=== PATIENT | female | born 1990 | race American Indian/Alaskan Native ===

== ENCOUNTER 2016-10-20 08:00 | Day surgery (SDC) | payer MEDICAID ==
[~2016-10-20 08:00] MED LIST: NACL 0.9% IR ONE
[2016-10-20] MEDS ORDERED: SUBLIMAZE IV PRN (10:30)
--- NOTE | 2016-10-20 10:32 | Anesthesia Day of Surgery ---
Anesthesia Day of Surgery - Day of Surgery Patient Examined: Yes Patient H&P Reviewed: Yes Patient is NPO: Yes Beta Blockers: No Cardiac Clearance: No Pulmonary Clearance: No
--- NOTE | 2016-10-20 10:33 | Anesthesia Consultation ---
Anesthesia Consult and Med Hx Date of service: 10/20/16 - Airway Anesthetic Teeth Evaluation: Good ROM Head & Neck: Adequate Mental/Hyoid Distance: Adequate Mallampati Class: Class II Intubation Access Assessment: Good - Pulmonary Exam CTA: Yes - Cardiac Exam Cardiac Exam: RRR - Pre-Operative Health Status ASA Pre-Surgery Classification: ASA2 Proposed Anesthetic Plan: General - Pulmonary Hx Smoking: No Hx Sleep Apnea: No (LASHONDA PRE SCREEN HIGH RISK) - Cardiovascular System Hx Hypertension: No - Central Nervous System Hx Back Pain: Yes Hx Psychiatric Problems: No - Other Systems Hx Alcohol Use: No Hx Substance Use: No Hx Cancer: No Hx Obesity: Yes
[2016-10-20] MEDS ORDERED: DIPRIVAN 10 MG/ML IV ONE (10:39)
[2016-10-20] MEDS ORDERED: DILAUDID ONE (10:40)
[2016-10-20 10:51] LABS: Hematocrit 37.3 % (30.3-42.9)
[2016-10-20] MEDS ORDERED: LACTATED RINGERS 1,000 ML IV SCH (11:00)
[2016-10-20] MEDS ORDERED: PEPCID PO NR (11:00)
[2016-10-20] MEDS ORDERED: ANCEF/STERILE WATER 2 GM/20 ML IV NR (11:00)
[2016-10-20] MEDS ORDERED: NACL 0.9% 1000 ML 1,000 ML IV SCH (11:00)
[2016-10-20] MEDS ORDERED: VERSED IV NR (11:00)
[2016-10-20] MEDS ORDERED: ZOFRAN ONE ×2 (14:23→14:38)
[2016-10-20] MEDS ORDERED: DECADRON ONE (14:38)
[2016-10-20] MEDS ORDERED: XYLOCAINE MPF 2% ONE (14:38)
[2016-10-20] MEDS ORDERED: NACL 0.9% IR ONE (14:48)
--- NOTE | 2016-10-20 15:46 | Post Anesthesia Evaluation ---
- Post Anesthesia Evaluation Patient Participated: No (pt resting comfortably) Airway Patent: Yes Stable Respiratory Function: Yes Nausea/Vomiting: No Temp > 96.8F: Yes Pain Manageable: Yes Adequeate Hydration: Yes Anesthesia Complications: No Block Receding Appropriately: Not Applicable Patient on Ventilator: No
[2016-10-20] MEDS: DILAUDID IV PRN ×4 (15:50→16:20)
--- NOTE | 2016-10-20 15:51 | Operative Report ---
SERVICE: Plastic surgery. PREOPERATIVE DIAGNOSES: Bilateral acquired absence of nipples. POSTOPERATIVE DIAGNOSES: Bilateral acquired absence of nipples. PROCEDURE: Bilateral nipple reconstruction. SURGEON: Paul Baires M.D. PRODUCTION PACKAGER: Anton Leal CSA. DESCRIPTION OF PROCEDURE: The patient was brought to the operating room and placed on the table in supine position. Following administration of general anesthesia, bilateral breasts were prepped with a Betadine solution and draped in the usual sterile manner. Following preoperative markings for a flag shaped flap #11 blade scalpel was used to incise skin and elevate the flag shaped flap folded around upon itself and secured in place with interrupted 3-0 Monocryl sutures to form a cylinder. Donor site was closed with interrupted running subcuticular 2-0 and 3-0 Monocryl sutures. Mastisol, Steri-Strips, and sterile protective dressing were applied. The patient tolerated the procedure well and returned to recovery room in stable condition. JOB# [id number] FTW/NTS
[2016-10-20 16:54] VITALS: BP 120/78
== END 2016-10-20 17:10 | disposition home or self-care (01) ==
LOC: OR 08:00
PROVIDERS: ATTEND Plastic Surgery
DX: Z90.13 Acquired absence of bilateral breasts and nipples (principal); E66.9 Obesity, unspecified; Z68.35 Body mass index [BMI] 35.0-35.9, adult
CPT/HCPCS: 19350; 36415; 81025; 85014; 85018; J0690; J1100; J1170; J2250; J2405; J2704; J7120